=== PATIENT | female | born 2000 | race Two or more races ===

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

== ENCOUNTER 2022-09-29 06:33 | Emergency (ER) | payer MEDICAID, OTHER ==
[~2022-09-29] VITALS: Ht 152.4 cm; Wt 56.0 kg
[2022-09-29 07:36] VITALS: BP 119/76
[2022-09-29] MEDS ORDERED: BENZ100C19 PO (07:50)
[2022-09-29] MEDS ORDERED: METH4PAK PO (07:50)
== END 2022-09-29 07:54 | disposition home or self-care (01) ==
LOC: ER 06:38
DX: J20.9 Acute bronchitis, unspecified (principal)
CPT/HCPCS: 71046